=== PATIENT | female | born 1980 | race American Indian/Alaskan Native ===

== ENCOUNTER 2016-07-21 20:06 | Emergency (ER) | payer MEDICARE ==
[2016-07-21 20:24] VITALS: BP 141/86
--- NOTE | 2016-07-21 22:48 | Emergency Department Report ---
ED General Adult HPI - General Chief complaint: Skin/Abscess/Foreign Body Stated complaint: CYST ON LT SIDE OF HEAD Time Seen by Provider: 07/21/16 22:35 Source: patient Mode of arrival: Ambulatory Limitations: No Limitations - History of Present Illness Initial comments: Patient comes into the ER today with complaints of a cyst on the left side of her forehead as well as cysts in her back. Patient states that a few months ago she had an MRI while in [place] of her lower back and they told her that she has cysts on her back. As far as the cyst on her forehead, patient states that she has had it there for about a month and that it has recently started getting bigger. Patient denies any injury. - Related Data Home Medications Medication Instructions Recorded Confirmed Last Taken ARIPiprazole [Abilify TAB] 10 mg PO DAILY 07/21/16 07/21/16 07/21/16 Albuterol Sulfate [Ventolin HFA] 2 puff IH Q4H PRN 07/21/16 07/21/16 Unknown Gabapentin [Neurontin] 300 mg PO Q8HR 07/21/16 07/21/16 07/21/16 HYDROcodone/APAP 5-325 [[place] 5 mg PO Q6HR 07/21/16 07/21/16 Unknown 5-325 mg TAB] Omeprazole 40 mg PO BID 07/21/16 07/21/16 07/21/16 Zolpidem [Ambien] 10 mg PO QHS 07/21/16 07/21/16 1 Day Ago busPIRone [Buspar] 10 mg PO Q4HR 07/21/16 07/21/16 07/21/16 Previous Rx's Medication Instructions Recorded Last Taken Type Cephalexin [Keflex] 500 mg PO TID #30 cap 07/21/16 Unknown Rx Allergies Allergy/AdvReac Type Severity Reaction Status Date / Time No Known Allergies Allergy Unverified 07/21/16 20:24 ED Review of Systems ROS: Stated complaint: CYST ON LT SIDE OF HEAD Other details as noted in HPI Constitutional: denies: chills, fever Eyes: denies: eye pain, eye discharge, vision change ENT: denies: ear pain, throat pain Respiratory: denies: cough, shortness of breath, wheezing Cardiovascular: denies: chest pain, palpitations Endocrine: no symptoms reported Gastrointestinal: denies: abdominal pain, nausea, diarrhea Genitourinary: denies: urgency, dysuria, discharge Musculoskeletal: back pain. denies: joint swelling, arthralgia Skin: denies: rash Neurological: denies: headache, weakness, paresthesias Psychiatric: denies: anxiety, depression Hematological/Lymphatic: denies: easy bleeding, easy bruising ED Past Medical Hx - Past Medical History Hx Asthma: Yes - Surgical History Additional Surgical History: elbow, sinus, jaw - Social History Smoking Status: Former Smoker Substance Use Type: Alcohol - Medications Home Medications: Home Medications Medication Instructions Recorded Confirmed Last Taken Type ARIPiprazole [Abilify TAB] 10 mg PO DAILY 07/21/16 07/21/16 07/21/16 History Albuterol Sulfate [Ventolin HFA] 2 puff IH Q4H PRN 07/21/16 07/21/16 Unknown History Cephalexin [Keflex] 500 mg PO TID #30 cap 07/21/16 Unknown Rx Gabapentin [Neurontin] 300 mg PO Q8HR 07/21/16 07/21/16 07/21/16 History HYDROcodone/APAP 5-325 [[place] 5 mg PO Q6HR 07/21/16 07/21/16 Unknown History 5-325 mg TAB] Omeprazole 40 mg PO BID 07/21/16 07/21/16 07/21/16 History Zolpidem [Ambien] 10 mg PO QHS 07/21/16 07/21/16 1 Day Ago History busPIRone [Buspar] 10 mg PO Q4HR 07/21/16 07/21/16 07/21/16 History ED Physical Exam - General Limitations: No Limitations General appearance: alert, in no apparent distress, lethargic - Head Head exam: Present: atraumatic, normocephalic, other (left upper forehead swollen area approximately 2 x 3 cm in size. Tissue is not indurated, nonerythematous and nontender.) - Eye Eye exam: Present: normal appearance, PERRL - ENT ENT exam: Present: normal exam, normal orophraynx, mucous membranes moist, TM's normal bilaterally, normal external ear exam - Neck Neck exam: Present: normal inspection, full ROM. Absent: tenderness, lymphadenopathy, thyromegaly - Respiratory Respiratory exam: Present: normal lung sounds bilaterally. Absent: respiratory distress - Cardiovascular Cardiovascular Exam: Present: regular rate, normal rhythm. Absent: systolic murmur, diastolic murmur, rubs, gallop - GI/Abdominal GI/Abdominal exam: Present: soft, normal bowel sounds - Extremities Exam Extremities exam: Present: normal inspection - Back Exam Back exam: Present: normal inspection, full ROM. Absent: tenderness, muscle spasm, paraspinal tenderness, vertebral tenderness, rash noted - Neurological Exam Neurological exam: Present: alert, oriented X3, CN II-XII intact, reflexes normal. Absent: motor sensory deficit - Psychiatric Psychiatric exam: Present: flat affect - Skin Skin exam: Present: warm, dry, intact, normal color. Absent: rash ED Course Vital Signs 07/21/16 20:20 Temperature 98.1 F Pulse Rate 87 Respiratory 18 Rate Blood Pressure 141/86 O2 Sat by Pulse 100 Oximetry ED Medical Decision Making - Medical Decision Making Patient is nontoxic and hemodynamically stable. Patient appears to be somewhat lethargic. This may be secondary to the extensive list of mind altering medications that she takes on a regular basis. I advised patient that if she has cysts in her spine that that is something she needs to be seen a sales enablement specialist. Patient states that she will be going back to [place] and I have encouraged patient to follow back up with the doctor that obtained the MRI. I further advised patient that the swelling on the left upper forehead region does not appear to be something that I would recommend incision and drainage at this time. I have more suspicion that this might be more of an underlying lipoma rather than a cyst. I will put patient on a short course of antibiotics and she is to follow back up with her primary care doctor for further evaluation. Patient is stable for discharge and is agreement with treatment plan. Critical care attestation.: If time is entered above; I have spent that time in minutes in the direct care of this critically ill patient, excluding procedure time. ED Disposition Clinical Impression: Left facial swelling Disposition: DISCHARGED TO HOME OR SELFCARE Is pt being admited?: No Does the pt Need Aspirin: No Condition: Good Instructions: Lipoma (ED) Prescriptions: Cephalexin [Keflex] 500 mg PO TID #30 cap Referrals: PRIMARY CARE, [Primary Care Provider] - 3-5 Days Time of Disposition: 22:50
== END 2016-07-21 23:04 | disposition home or self-care (01) ==
LOC: ED 20:06
DX: R22.0 Localized swelling, mass and lump, head (principal); J45.909 Unspecified asthma, uncomplicated; Z87.891 Personal history of nicotine dependence
CPT/HCPCS: 99282